=== PATIENT | female | born 1990 ===

== ENCOUNTER 2018-09-12 16:47 | Emergency (ER) | payer MEDICAID ==
[2018-09-12 16:57] VITALS: BMI 24.0
[2018-09-12] MEDS ORDERED: Naproxen 550 mg Tab PO STA (17:11)
[2018-09-12 17:14] VITALS: TEMP 98
--- NOTE | 2018-09-12 17:22 | ED PDOC ---
Arrival/HPI - General Chief Complaint: Lower Extremity Problem/Injury Time Seen by Provider: 09/12/18 16:48 Historian: Patient - History of Present Illness Narrative History of Present Illness (Text): 09/12/18 17:21 28-year-old female presents the emergency room after she injured her left foot states that she injured her left foot when she was running with her dog. Otherwise patient reports no numbness, pain, head injury. Patient has no other complaints. Past Medical History - Reproductive Menopause: No - Psychiatric Hx Substance Use: No - Anesthesia Hx Anesthesia: No Hx Anesthesia Reactions: No Hx Malignant Hyperthermia: No Family/Social History Family/Social History: No Known Family HX Smoking Status: Never Smoked Hx Alcohol Use: Yes Frequency of alcohol use: Socially Hx Substance Use: No Allergies/Home Meds Allergies/Adverse Reactions: Allergies No Known Allergies Allergy (Verified 09/12/18 16:57) Review of Systems - Review of Systems Constitutional: absent: Fatigue, Fevers Musculoskeletal: Arthralgias. absent: Back Pain, Neck Pain, Joint Swelling Skin: absent: Rash, Pruritis, Skin Lesions Neurological: absent: Headache, Dizziness Physical Exam Vital Signs Temp Pulse Resp BP Pulse Ox 09/12/18 16:48 98 F 92 H 18 106/61 99 Temperature: Afebrile Blood Pressure: Normal Pulse: Regular Respiratory Rate: Normal Appearance: Positive for: Well-Appearing, Non-Toxic, Comfortable Pain Distress: None Mental Status: Positive for: Alert and Oriented X 3 - Systems Exam Head: Present: Atraumatic, Normocephalic Neck: Present: Normal Range of Motion Upper Extremity: Present: Normal Inspection. No: Cyanosis, Edema Lower Extremity: Present: Normal Inspection, NORMAL PULSES, Tenderness (R foot : +moderate tenderness to the dorsal foot), Neurovascularly Intact, Capillary Refill < 2 s. No: Edema, Swelling, Deformity, Temperature Abnormalties Neurological: Present: GCS=15, CN II-XII Intact, Speech Normal, Normal Sensory Function Skin: Present: Warm, Dry, Normal Color. No: Rashes Psychiatric: Present: Alert, Oriented x 3, Normal Insight, Normal Concentration Medical Decision Making ED Course and Treatment: 09/12/18 17:18 Plan : - XR L foot - Naprosyn PO XR L foot: no fracture, no dislocation, as read by TRACEE. XR results reviewed with the patient, diagnosis of foot sprain d/w the patient. Rao wrap applied. Patient given crutches. Advised to rest, ice and elevate. Advised to follow up with primary care physician in 1-2 days without fail. Advised to take medication as prescribed. Return to the emergency room at any time for any new or worsening symptoms. Patient states she fully agrees with and understands discharge instructions. States that she agrees with the plan and disposition. Verbalized and repeated discharge instructions and plan. I have given the patient opportunity to ask any additional questions. - RAD Interpretation Radiology Orders: 09/12/18 17:16 FOOT LEFT 3 VIEWS ROUTINE [RAD] Stat - Medication Orders Current Medication Orders: Discontinued Medications Naproxen (Anaprox Ds) 550 mg PO ONCE STA Stop: 09/12/18 17:12 - PA / MENTAL HEALTH WORKER / Resident Statement /DO has reviewed & agrees with the documentation as recorded. Disposition/Present on Arrival - Present on Arrival Any Indicators Present on Arrival: No History of DVT/PE: No History of Uncontrolled Diabetes: No Urinary Catheter: No History of Decub. Ulcer: No History Surgical Site Infection Following: None - Disposition Have Diagnosis and Disposition been Completed?: Yes Diagnosis: Foot sprain Disposition: HOME/ ROUTINE Disposition Time: 18:30 Patient Plan: Discharge Condition: STABLE Discharge Instructions (ExitCare): Foot Sprain (DC) Additional Instructions: Follow up with your pmd in 1-2 days without fail. Rest, ice and elevate your foot. Take medication as prescribed for pain. Return to the ER at any time for any new or worsening symptoms. Prescriptions: Naproxen 500 mg PO BID PRN #20 tablet PRN Reason: Pain, Moderate (4-7) Referrals: Marika Dwyer MD [Staff Provider] - Follow up with primary Zoe Edwards MD [Staff Provider] - Follow up with primary Forms: [email or web address] (Vietnamese), WORK NOTE
--- NOTE | 2018-09-12 18:24 | RAD ---
Date of service: 09/12/2018 PROCEDURE: Left Foot Radiographs. HISTORY: pain COMPARISON: None. FINDINGS: BONES: Bone alignment and mineralization are normal. There is no acute displaced fracture or bone destruction. JOINTS: Normal. SOFT TISSUES: Normal. OTHER FINDINGS: None. IMPRESSION: No acute displaced fracture or dislocation.
[2018-09-12 18:54] VITALS: BP 114/63; PULSE 88; RESP 19; O2SAT 88
== END 2018-09-12 19:07 | disposition home or self-care (01) ==
LOC: ED 16:47
DX: S93.602A Unspecified sprain of left foot, initial encounter (principal); X58.XXXA Exposure to other specified factors, initial encounter; Y93.02 Activity, running